=== PATIENT | female | born 1985 | race African-American/Black ===

== ENCOUNTER 2020-07-24 18:25 | Emergency (ER) | payer SELFPAY ==
--- NOTE | 2020-07-24 19:14 | RAD REPORT ---
EXAM DESCRIPTION: RAD - Ankle Left 3 View -07/24/2020 6:57 pm CLINICAL HISTORY: Left ankle pain status post injury FINDINGS: No fracture or dislocation is seen. Soft tissue swelling
--- NOTE | 2020-07-24 19:19 | EDPHYS ---
Physician Documentation [facility] Name: Fabian Montana Age: 35 yrs Sex: Female : 1985 Arrival Date: 07/24/2020 Time: 18:26 Bed 26 Private MD: ED Physician Yung Moreira HPI: 07/24 20:04 This 35 yrs old Black Female presents to ER via Wheelchair with complaints of Ankle kb Injury, Ankle Pain. 20:04 The patient presents with pain, swelling, tenderness. The complaints affect the left kb ankle. Onset: The symptoms/episode began/occurred 6 day(s) ago. Context: The problem was sustained at home, resulted from rolled ankle, The patient can fully bear weight on the affected extremity. the patient is able to ambulate, with mild difficulty. Associated signs and symptoms: Pertinent positives: swelling, Pertinent negatives: calf tenderness, fever, nausea, numbness, rash, tingling, vomiting, warmth, weakness. Modifying factors: The symptoms are alleviated by nothing, the symptoms are aggravated by weight bearing. Severity of symptoms: At their worst the symptoms were moderate, in the emergency department the symptoms are unchanged. The patient has not experienced similar symptoms in the past. The patient has not recently seen a physician. 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 - Social history:: Smoking status: Patient reports the use of cigarette tobacco products, smokes one-half pack cigarettes per day. ROS: 20:01 Constitutional: Negative for fever, chills, and weight loss, Cardiovascular: Negative kb for chest pain, palpitations, and edema, Respiratory: Negative for shortness of breath, cough, wheezing, and pleuritic chest pain, Abdomen/GI: Negative for abdominal pain, nausea, vomiting, diarrhea, and constipation, Skin: Negative for injury, rash, and discoloration, Neuro: Negative for headache, weakness, numbness, tingling, and seizure. 20:01 MS/extremity: Positive for pain, swelling, tenderness, of the left lateral ankle. Exam: 20:01 Constitutional: This is a well developed, well nourished patient who is awake, alert, kb and in no acute distress. Head/Face: Normocephalic, atraumatic. Skin: Warm, dry with normal turgor. Normal color with no rashes, no lesions, and no evidence of cellulitis. Neuro: Awake and alert, GCS 15, oriented to person, place, time, and situation. Cranial nerves II-XII grossly intact. Motor strength 5/5 in all extremities. Sensory grossly intact. Cerebellar exam normal. Normal gait. 20:01 Musculoskeletal/extremity: Extremities: grossly normal except: noted in the left lateral ankle: pain, swelling, tenderness, ROM: limited active range of motion due to pain, in the left lateral ankle, Circulation is intact in all extremities. Sensation intact. Weight bearing: able to fully bear weight. Vital Signs: 18:32 BP 136 / 81; Pulse 99; Resp 16; Temp 98.7; Pulse Ox 100% ; Weight 0.91 kg; Height 5 ft. sv 3 in. (160.02 cm); Pain 5/10; 19:34 BP 139 / 94; Pulse 96; Resp 20; Temp 98.4(O); lc1 18:32 Body Mass Index 0.36 (0.91 kg, 160.02 cm) sv MDM: 18:52 Patient medically screened. kb 19:18 Data reviewed: vital signs, nurses notes. Data interpreted: Pulse oximetry: on room air kb is 100 %. Interpretation: normal. Counseling: I had a detailed discussion with the patient and/or guardian regarding: the historical points, exam findings, and any diagnostic results supporting the discharge/admit diagnosis, radiology results, the need for outpatient follow up, a orthopedic surgeon, to return to the emergency department if symptoms worsen or persist or if there are any questions or concerns that arise at home. 07/24 18:35 Order name: Ankle Left 3 View XRAY; Complete Time: 19:22 sv 07/24 19:18 Order name: [place] wrap-joint; Complete Time: 19:37 kb 07/24 19:18 Order name: Aircast Ankle Splint; Complete Time: 19:37 kb Administered Medications: 19:22 Drug: [place] (7.5 mg-325 mg) 1 tabs Route: PO; 1 19:31 Follow up: Response: No adverse reaction lc1 Disposition: 07/25 06:44 Co-signature as Attending Physician, Yung Moreira MD I agree with the assessment and kdr plan of care. Disposition: 07/24/20 19:19 Discharged to Home. Impression: Sprain of ankle. - Condition is Stable. - Discharge Instructions: Ankle Sprain, [id number]. - Prescriptions for Ibuprofen 800 mg Oral Tablet - take 1 tablet by ORAL route every 8 hours As needed take with food; 30 tablet. - Medication Reconciliation Form, Thank You Letter, Antibiotic Education, Prescription Opioid Use form. - Follow up: Emergency Department; When: As needed; Reason: Worsening of condition. Follow up: Private Physician; When: 2 - 3 days; Reason: Recheck today's complaints, Continuance of care, Re-evaluation by your physician. Signatures: Dispatcher [employer] EDMS Duyen Jackson, BINU LOAIZAP-An Hernández, RN RN Yung Garcia MD MD [facility] Sissy Márquez [facility] Corrections: (The following items were deleted from the chart) 07/24 19:50 19:19 07/24/2020 19:19 Discharged to Home. Impression: Sprain of ankle. Condition is lc1 Stable. Forms are Medication Reconciliation Form, Thank You Letter, Antibiotic Education, Prescription Opioid Use. Follow up: Emergency Department; When: As needed; Reason: Worsening of condition. Follow up: Private Physician; When: 2 - 3 days; Reason: Recheck today's complaints, Continuance of care, Re-evaluation by your physician. kb
--- NOTE | 2020-07-24 19:19 | ER ---
Nurse's Notes [facility] Name: Fabian Montana Age: 35 yrs Sex: Female : 1985 Arrival Date: 07/24/2020 Time: 18:26 Bed 26 Private MD: Diagnosis: Sprain of ankle Presentation: 07/24 18:31 Chief complaint: Patient states: fell and twisted her left ankle on Wednesday. Pain has sv not improved. Ibuprofen taken at 0800 today. Coronavirus screen: Client denies travel out of the [place] in the last 14 days. At this time, the client does not indicate any symptoms associated with coronavirus-19. Ebola Screen: No symptoms or risks identified at this time. Risk Assessment: Do you want to hurt yourself or someone else? Patient reports no desire to harm self or others. Onset of symptoms was July 19, 2020. 18:31 Method Of Arrival: Wheelchair sv 18:31 Acuity: JASON 4 sv 18:32 Initial Sepsis Screen: Does the patient meet any 2 criteria? HR > 90 bpm. No. Patient's sv initial sepsis screen is negative. Does the patient have a suspected source of infection? No. Patient's initial sepsis screen is negative. Triage Assessment: 18:34 General: Appears in no apparent distress. uncomfortable, Behavior is calm, cooperative, sv appropriate for age. Pain: Complains of pain in left ankle. Neuro: Level of Consciousness is awake, alert, obeys commands, Oriented to person, place, time, situation. Respiratory: Respiratory effort is even, labored. 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 - Social history:: Smoking status: Patient reports the use of cigarette tobacco products, smokes one-half pack cigarettes per day. Screenin:34 Abuse screen: Denies threats or abuse. Nutritional screening: No deficits noted. lc1 Tuberculosis screening: No symptoms or risk factors identified. Fall Risk None identified. Assessment: 18:35 Reassessment: Received VO from Dr Moreira for xray. sv 19:10 General: Appears distressed, comfortable, Behavior is calm, cooperative. Pain:. lc1 19:12 Pain: Complains of pain in Left ankle. lc1 19:34 Pain: Pain currently is 5 out of 10 on a pain scale. Quality of pain is described as. lc1 Neuro: No deficits noted. Cardiovascular: No deficits noted. Respiratory: No deficits noted. GI: No deficits noted. : No deficits noted. EENT: No deficits noted. Derm: No signs and/or symptoms reported regarding the dermatologic system. Musculoskeletal: No deficits noted. Injury Description: patient stated she twisted her ankle. Vital Signs: 18:32 BP 136 / 81; Pulse 99; Resp 16; Temp 98.7; Pulse Ox 100% ; Weight 0.91 kg; Height 5 ft. sv 3 in. (160.02 cm); Pain 5/10; 19:34 BP 139 / 94; Pulse 96; Resp 20; Temp 98.4(O); lc1 18:32 Body Mass Index 0.36 (0.91 kg, 160.02 cm) sv ED Course: 18:26 Patient arrived in ED. ag5 18:32 Triage completed. sv 18:32 Arm band placed on. sv 18:51 Duyen Jackson [facility]C [facility]. kb 18:51 Yung Moreira MD is Attending Physician. kb 18:56 Ankle Left 3 View XRAY In Process Unspecified. EDMS 19:10 Sissy Márquez is Primary Nurse. lc1 19:34 Patient has correct armband on for positive identification. Bed in low position. Call lc1 light in reach. Side rails up X 1. 19:34 No provider procedures requiring assistance completed. Patient did not have IV access lc1 during this emergency room visit. Administered Medications: 19:22 Drug: [place] (7.5 mg-325 mg) 1 tabs Route: PO; lc1 19:31 Follow up: Response: No adverse reaction lc1 Outcome: 19:19 Discharge ordered by . kb 19:44 Discharged to home ambulatory. lc1 19:44 Condition: good 19:44 Discharge instructions given to patient, Instructed on discharge instructions, follow up and referral plans. medication usage, Demonstrated understanding of instructions, follow-up care, medications, Prescriptions given X 1. 19:50 Patient left the ED. lc1 Signatures: Dispatcher [employer] EDMS Duyen Jackson FNP-C FNP-An Hernández, MARGE RN Sissy Adkins lc1 Mary Jane Garza ag5 Corrections: (The following items were deleted from the chart) 18:35 18:32 Pulse 99bpm; Resp 16bpm; Pulse Ox 100%; Temp 98.7F; 0.91 kg; Height 5 ft. 3 in.; sv BMI: 0.35; Pain 5/10; sv
[2020-07-24] MEDS ORDERED: HYDROCODONE/APAP 7.5/325 MG TAB ONE (19:33)
[2020-07-24 19:54] VITALS: O2SAT 100
[2020-07-24 19:55] VITALS: BP 139/94; TEMP 98.4
== END 2020-07-24 19:50 | disposition home or self-care (01) ==
LOC: ER 18:25
DX: S93.402A Sprain of unspecified ligament of left ankle, initial encounter (principal); F17.210 Nicotine dependence, cigarettes, uncomplicated; X50.0XXA Overexertion from strenuous movement or load, initial encounter; Y92.009 Unspecified place in unspecified non-institutional (private) residence as the place of occurrence of the external cause
CPT/HCPCS: 99283